=== PATIENT | male | born 1970 | race African-American/Black ===

== ENCOUNTER 2017-08-16 12:07 | Emergency (ER) | payer SELFPAY ==
[~2017-08-16] VITALS: Ht 172.7 cm; Wt 68.0 kg
--- NOTE | 2017-08-16 12:53 | NUR ---
Patient discharged to home in stable conditon. Written and verbal after care instructions given. Patient verbalizes understanding of instructions.
== END 2017-08-16 12:55 | disposition home or self-care (01) ==
LOC: ER 12:09
DX: Z00.00 Encounter for general adult medical examination without abnormal findings (principal)
CPT/HCPCS: A4663